=== PATIENT | male | born 1960 | race American Indian/Alaskan Native ===

== ENCOUNTER 2019-02-08 05:52 | Emergency (ER) | payer OTHER ==
[2019-02-08 06:14] VITALS: BMI 27.3
[2019-02-08] MEDS ORDERED: KETOROLAC TROMETHAMINE 60 MG/2 ML VIAL IM ONE (06:16)
[2019-02-08] MEDS ORDERED: diazePAM 5 MG TABLET PO ONE (06:16)
[2019-02-08] MEDS ORDERED: LIDOCAINE 5% TOPICAL PATCH TP ONE (06:16)
--- NOTE | 2019-02-08 06:20 | PDOC ---
Attending Attestation - Resident Resident Name: Jessica Sesay - ED Attending Attestation I have performed the following: I have examined & evaluated the patient, The case was reviewed & discussed with the resident, I agree w/resident's findings & plan, Exceptions are as noted - HPI HPI: 02/08/19 06:17 58 yo male h/o htn and DM here wtih low back pain radiating down his right leg. started after lifting something heavy yeterday. no new numbness or tingling or weakness. no bowel or bladder. worse with bending or movement. no h/;o prior back injury no f/c no back surgery. does have occasional dysuria. no hematuria. no f/c. - Physicial Exam PE: 02/08/19 06:19 awake alert lungs clear bilat heart rrr no mrg abd soft nt nd ext wwp no edema. no calf tenderness. skin warm and dry. 5/5 bilt lower ext strength. sensation intact throughout lower ext. positive right straight leg raise. - Medical Decision Making 02/08/19 06:19 58 yo male here with low back pain, msk pain / strain. normal nuero exam. positive straight leg raise. plan nsaids, valium reassess. will check ua due to dysuria no uti.
[2019-02-08] MEDS ORDERED: diazePAM 5 MG TABLET ONE (06:25)
[2019-02-08] MEDS ORDERED: KETOROLAC TROMETHAMINE 60 MG/2 ML VIAL ONE (06:25)
[2019-02-08] MEDS ORDERED: LIDOCAINE 5% TOPICAL PATCH ONE (06:26)
--- NOTE | 2019-02-08 06:27 | PDOC ---
History of Present Illness - General Stated Complaint: LOWER BACK PAIN Time Seen by Provider: 02/08/19 05:56 - History of Present Illness Initial Comments: 02/08/19 06:18 Mr. Montes is a 58 y/o M with a pmhx of DM, HTN, and HLD who presents to the ED with 1 day of back pain which began when he lifted a heavy peace of metal and threw it into a dumpster. Per the patient he felt a sharp pain in his R lower back, he went about his day and tried to sleep it off but this morning he could barely move. He rates the pain as 10/10 and states it radiates to his R hip. He tried to take 2 Aleve but this did not help. He denies any other neurologic sx including numbness or tingling in his LE, weakness of his LE, or bladder/ bowel incontinence of dysfunction. On ROS he denied feeling feverish, chills, change in vision, AGEE, CP, SOB, heart palpitations, abdominal pain, N/V/D /C, or hematuria. He did endorse some dysuria occasionally. Past History - Past Medical History Allergies/Adverse Reactions: Allergies Allergy/AdvReac Type Severity Reaction Status Date / Time No Known Allergies Allergy Verified 02/08/19 06:14 Home Medications: Ambulatory Orders Sitagliptin Phos/Metformin HCl [Janumet 50-1,000 mg Tablet] 1 each PO DAILY 05/25 Telmisartan [Micardis] 80 mg PO DAILY 02/08/19 metFORMIN HCL [Metformin HCl] 500 mg BID 02/08/19 COPD: No Diabetes: Yes HTN: Yes - Immunization History Immunization Up to Date: Yes - Psycho Social/Smoking Cessation Hx Smoking History: Never smoked Hx Alcohol Use: No Drug/Substance Use Hx: No Review of Systems - Review of Systems Able to Perform ROS?: Yes Is the patient limited [place] proficient: No Constitutional: No: Chills, Diaphoresis, Fever, Loss of Appetite, Weakness HEENTM: No: Eye Pain, Recent change in vision, Ear Pain, Nose Pain, Throat Pain Respiratory: No: Cough, Orthopnea, Shortness of Breath Cardiac (ROS): No: Chest Pain, Edema, Irregular Heart Rate, Lightheadedness ABD/GI: No: Abdominal Distended, Blood Streaked Bowels, Constipated, Diarrhea, Nausea, Poor Fluid Intake, Vomiting, Abdominal cramping : Yes: Dysuria. No: Burning, Discharge, Hematuria Musculoskeletal: Yes: Back Pain Integumentary: No: Bruising, Change in Color, Erythema, Rash Neurological: No: Headache, Numbness, Paresthesia, Tingling All Other Systems: Reviewed and Negative *Physical Exam - Vital Signs Last Vital Signs Temp Pulse Resp BP Pulse Ox 98 F 81 18 159/98 95 02/08/19 05:58 02/08/19 05:58 02/08/19 05:58 02/08/19 05:58 02/08/19 05:58 - Physical Exam General Appearance: Yes: Nourished, Appropriately Dressed, Mild Distress HEENT: positive: EOMI, NACHO, Normal ENT Inspection Neck: positive: Trachea midline, Supple. negative: Tender Respiratory/Chest: positive: Lungs Clear, Normal Breath Sounds. negative: Respiratory Distress, Accessory Muscle Use, Crackles, Rales, Wheezing Cardiovascular: positive: Regular Rhythm, Regular Rate, S1, S2. negative: Edema , Murmur Gastrointestinal/Abdominal: positive: Normal Bowel Sounds, Flat, Soft. negative : Tender Musculoskeletal: positive: Normal Inspection, Vertebral Tenderness (R sided tenderness). 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 negative: Numbness, Sensory Deficit Medical Decision Making - Medical Decision Making 02/08/19 06:26 Mr. Montes is a 58 y/o M with a pmhx of DM, HTN, and HLD who presents to the ED with 1 day of back pain which began when he lifted a heavy peace of metal and threw it into a dumpster. Most likely cause of his sx is a pulled muscle. The differential also includes a slipped disc however this is less likely as the pt had a negative straight leg raise test on physical exam. Will start the pt on some anti-inflammatory and pain medications to see if this alleviates his sx. Will order: - Diazepam 5mg PO - Toradol 60mg PO - Lidocaine patch
--- NOTE | 2019-02-08 07:16 | PDOC ---
*Physical Exam - Vital Signs Last Vital Signs Temp Pulse Resp BP Pulse Ox 98 F 81 18 159/98 95 02/08/19 05:58 02/08/19 05:58 02/08/19 05:58 02/08/19 05:58 02/08/19 05:58 ED Treatment Course - Medications Given in the ED: ED Medications Discontinued Medications Generic Name Dose Route Start Last Admin Trade Name Jerzy PRN Reason Stop Dose Admin Diazepam 5 mg 02/08/19 06:16 02/08/19 06:42 Valium - PO 02/08/19 06:17 5 mg ONCE ONE Administration Ketorolac Tromethamine 60 mg 02/08/19 06:16 02/08/19 06:42 Toradol Injection - IM 02/08/19 06:17 60 mg ONCE ONE Administration Lidocaine 1 patch 02/08/19 06:16 02/08/19 06:41 Lidoderm Patch - TP 02/08/19 06:17 1 patch ONCE ONE Administration Medical Decision Making - Medical Decision Making 02/08/19 07:45 Mr. Montes is a 58 y/o M with a pmhx of DM, HTN, and HLD who presents to the ED with 1 day of back pain likely d/t MSK strain. Unlikely disk herniation ( neg straight leg raise) vs cauda equina (no bowel/urinary changes). Given diazepam, toradol, lido patch w pain improvement. No evidence of UTI on UA. DC home w PCP/ortho f/u, work leave, supportive care Discharge - Discharge Information Problems reviewed: Yes Clinical Impression/Diagnosis: Musculoskeletal pain Condition: Improved Disposition: HOME - Admission No - Follow up/Referral Referrals: Zion Garcia [Primary Care Provider] - Wilner Willis DO [Staff Physician] - - Patient Discharge Instructions Patient Printed Discharge Instructions: DI for Low Back Pain Additional Instructions: You were seen for back pain. Your history and exam did not show anything concerning. You were given pain medication. Your urine did not show infection. Please follow up with your primary care doctor regarding your back. You can take tylenol or ibuprofen and see the referred orthopedic Dr Willis if you continue to have pain. Come back to the ED if you have difficulty urinating or defecating, worsening pain, or difficulty moving your legs. - Post Discharge Activity Work/Back to School Note: Back to Work
[2019-02-08 08:36] LABS: PH,URINE 5.5 (5.0-8.0); URINE APPEARANCE CLEAR; URINE BILIRUBIN NEGATIVE (NEGATIVE); URINE COLOR YELLOW; URINE GLUCOSE (UA) NEGATIVE (NEGATIVE); URINE KETONE NEGATIVE (NEGATIVE); URINE LEUK ESTERASE NEGATIVE (NEGATIVE); URINE NITRITE NEGATIVE (NEGATIVE); URINE PROTEIN NEGATIVE (NEGATIVE); URINE UROBILINOGEN 0.2 mg/dL (0.2-1.0)
[2019-02-08 08:56] VITALS: BP 145/72; PULSE 76; TEMP 98.1
== END 2019-02-08 08:45 | disposition home or self-care (01) ==
LOC: JER 05:52
PROC: 3E0233Z Introduction of Anti-inflammatory into Muscle, Percutaneous Approach (ICD-10-PCS; principal; 2019-02-08)
DX: M54.5 Low back pain (principal); M79.10 Myalgia, unspecified site; E11.9 Type 2 diabetes mellitus without complications; I10 Essential (primary) hypertension; E78.5 Hyperlipidemia, unspecified
CPT/HCPCS: 81003; 99282-25

== ENCOUNTER 2020-10-30 16:56 | Emergency (ER) | payer OTHER ==
[2020-10-30 17:01] VITALS: BP 155/100; PULSE 96; TEMP 97; BMI 29.0
[2020-10-30] MEDS ORDERED: KETOROLAC TROMETHAMINE 15 MG/ML VIAL IM ONE (17:24)
[2020-10-30] MEDS ORDERED: METHOCARBAMOL 500 MG TABLET PO ONE (17:24)
[2020-10-30] MEDS ORDERED: KETOROLAC TROMETHAMINE 15 MG/ML VIAL ONE (17:43)
[2020-10-30] MEDS ORDERED: METHOCARBAMOL 500 MG TABLET ONE (17:43)
== END 2020-10-30 23:18 | disposition home or self-care (01) ==
LOC: JER 16:56 → JERFT 16:56
PROC: 3E023GC Introduction of Other Therapeutic Substance into Muscle, Percutaneous Approach (ICD-10-PCS; principal; 2020-10-30)
DX: M54.5 Low back pain (principal); M25.512 Pain in left shoulder
CPT/HCPCS: 72100-TC-FY; 73030-TC-LT-FY; 99284-25